=== PATIENT | female | born 1985 | race Caucasian/White ===

== ENCOUNTER 2020-04-22 12:24 | Outpatient (CLI) | payer OTHER, SELFPAY ==
[2020-04-22 13:45] LABS: SARS-CoV-2 Ag Positive (Negative)
== END 2020-04-22 12:25 | disposition home or self-care (01) ==
LOC: CHSLAB 12:29
PROVIDERS: PCP Nurse Practitioner Family; Visit Provider Nurse Practitioner Family
DX: U07.1 COVID-19 (principal)
CPT/HCPCS: 87426

== ENCOUNTER 2022-03-16 15:56 | Emergency (ER) | payer OTHER, SELFPAY ==
[2022-03-16 16:13] VITALS: BP 140/86; PULSE 117; RESP 18; TEMP 36.7; O2SAT 99
--- NOTE | 2022-03-16 16:57 | ED.URI ---
HPI - URI/Sore Throat General Chief Complaint: Upper Respiratory Infection Stated Complaint: fever,sob,cough Time Seen by Provider: 03/16/22 16:46 Source: patient Mode of arrival: ambulatory Limitations: no limitations History of Present Illness HPI Narrative: Patient presents today complaining of body aches, cough, sinus pressure, fever up to 99.7, nasal congestion. Symptoms began today. She has been taking Tylenol for her symptoms today with some relief. She was exposed to influenza by her nieces and nephews 3-4 days ago. They tested positive for influenza a yesterday. Patient is 28 weeks . Related Data Home Medications Medication Instructions Recorded Confirmed Cataplex G 03/16/22 doxylamine succinate 25 mg tablet 25 mg PO HS 03/16/22 03/16/22 (Unisom (doxylamine)) duloxetine 20 mg capsule,delayed 20 mg PO DAILY 03/16/22 03/16/22 release loratadine 10 mg tablet (Claritin) 10 mg PO DAILY 03/16/22 03/16/22 multivit with minerals-iron 18 1 tablet PO DAILY 03/16/22 03/16/22 mg-folic ac 400 mcg-vit K 25 mcg tablet (Adults Multivitamin) Allergies Allergy/AdvReac Type Severity Reaction Status Date / Time doxycycline Allergy Swelling Verified 03/16/22 16:21 of Lip/Tongue/Throat methylprednisolone Allergy Anaphylaxis Verified 03/16/22 16:21 Penicillins Allergy Anaphylaxis Verified 03/16/22 16:21 Review of Systems Review of Systems: CONSTITUTIONAL: Denies chills, or sweats.+ fever, body aches EYES: Denies visual changes, redness, or discharge. ENT: Denies rhinorrhea, sore throat, or otalgia.+ congestion, sinus pressure CARDIOVASCULAR: Denies chest pain, palpitations, or edema. RESPIRATORY: Denies dyspnea.+ cough GASTROINTESTINAL: Denies abdominal pain, nausea, vomiting, or diarrhea. GENITOURINARY: Denies dysuria or hematuria. SKIN: Denies rash, itching, or wounds. MUSCULOSKELETAL: Denies back pain, joint pain, or myalgia. NEUROLOGIC: Denies headache, numbness, tingling, or weakness. PSYCH: Denies depression or anxiety. PMFSH Comments At time of signature, I have reviewed and agree with nursing past medical, surgical, social and family history unless otherwise noted. Please see nursing chart for further information. There is no relevant family history pertinent to the presenting complaint Exam Narrative: GENERAL: Well-appearing, well-nourished, and in no acute distress. HEAD: Normocephalic, atraumatic. EYES: EOMI. No redness or drainage. Conjunctivae normal. ENT: Mucous membranes pink and moist. Nares clear. No rhinorrhea. TMs normal bilaterally with mild bibasilar effusions. Throat normal. Uvula midline. NECK: Normal AROM. Supple. No lymphadenopathy. CHEST: No respiratory distress. Clear to auscultation. HEART: Regular rhythm.+ tachycardic. No murmur appreciated. Normal peripheral pulses. ABDOMEN: gravid EXTREMITIES: Normal range of motion. No edema. SKIN: Warm, dry, no rash. Capillary refill normal. Normal skin turgor. NEURO: No focal deficits. Alert and oriented x3. Gait steady. PSYCH: Normal affect. No signs of depression or anxiety. Course Course Level of Care: Express Care Visit Vital Signs Vital signs: Vital Signs Temperature 98.1 F 03/16/22 16:13 Pulse Rate 117 H 03/16/22 16:13 Respiratory Rate 18 03/16/22 16:13 Blood Pressure 140/86 03/16/22 16:13 Pulse Oximetry 99 03/16/22 16:13 Oxygen Delivery Room Air 03/16/22 16:13 Temperature 98.1 F 03/16/22 16:13 Pulse Rate 117 H 03/16/22 16:13 Respiratory Rate 18 03/16/22 16:13 Blood Pressure 140/86 03/16/22 16:13 Pulse Oximetry 99 03/16/22 16:13 Oxygen Delivery Room Air 03/16/22 16:13 Reviewed. Pt has been instructed to follow up with her PCP regarding her elevated blood pressure today. MDM - URI/Sore Throat Differential Diagnosis Differential diagnosis: Likely upper respiratory infection, otitis media, sinusitis, viral infection and influenza Lab Data Attest
== END 2022-03-16 17:09 | disposition home or self-care (01) ==
PROVIDERS: Emergency Provider Nurse Practitioner; PCP Obstetrics & Gynecology
DX: J11.1 Influenza due to unidentified influenza virus with other respiratory manifestations (principal)
CPT/HCPCS: 87804; 99213; G0463

== ENCOUNTER 2022-04-09 08:21 | Outpatient (CLI) | payer OTHER, SELFPAY ==
[2022-04-09] VITALS (19 sets, daily range): BP systolic 139–157; BP diastolic 87–106; PULSE 102
[2022-04-09 09:08] LABS: Basophils Percent Auto 0.2 % (0.2-1.2); Eosinophils Percent Auto 0.3 % (0-4.4); Hematocrit 31.8 % (37.0-47.0); Hemoglobin 10.5 g/dL (12.0-15.0); Immature Granulocyte Absolute 0.05 K/mm3 (0.00-0.031); Immature Granulocyte Percent A 0.5 % (0-0.5); Lymphocytes Absolute Auto 1.36 K/mm3 (0.9-3.2); Lymphocytes Percent Auto 12.8 % (18.3-44.2); Mean Corpuscular Hemoglobin 30.1 pg (26-34); Mean Corpuscular Volume 91.1 fl (80-100); Mean Platelet Volume 12.1 fl (7.4-10.4); Monocytes Absolute Auto 0.7 K/mm3 (0.1-0.6); Monocytes Percent Auto 6.5 % (2.6-8.5); Neutrophils Absolute Auto 8.5 K/mm3 (1.3-6.7); Neutrophils Percent Auto 79.7 % (45.5-73.1); Platelet Count Result 154 k/mm3 (150-375); Red Blood Count 3.49 M/mm3 (4.2-5.4); Red Cell Distribution Width 12.3 % (11.5-14.5); White Blood Count 10.6 K/mm3 (4.5-10.0)
[2022-04-09 09:10] LABS: Appearance Urine Slightly Cloudy (Clear); Bilirubin Urine Negative (Negative); Blood Urine Negative (Negative); Color Urine Yellow (Yellow); Glucose Urine UA Negative (Negative); Ketones Urine Negative (Negative); Leukocyte Esterase Ur Negative LEU/UL (NEGATIVE); Nitrate Urine Negative (Negative); Protein Urine 1+ mg/dL (Negative); Specific Grav Ur 1.015 (1.001-1.035); Urobilinogen Urine 0.2 mg/dL (<2.0)
[2022-04-09 09:18] LABS: Bacteria Urine Trace /hpf; RBC Urine 0-2 /hpf (0-2); Squamous Epithelial Cell Urine Occasional /hpf (Few); WBC Urine 0-3 /hpf (0-3)
[2022-04-09 09:21] LABS: Alanine Aminotransferase 42 U/L (6-35); Albumin Level 3.5 g/dL (3.5-5.1); Alkaline Phosphatase 127 U/L (38-126); Anion Gap 12 mmol/L (8-16); Aspartate Amino Transferase 45 U/L (14-36); Bilirubin,Total 0.2 mg/dL (0.2-1.3); Blood Urea Nitrogen 6 mg/dL (7-17); Calcium 8.5 mg/dL (8.4-10.2); Carbon Dioxide 21 mmol/L (22-30); Chloride 103 mmol/L (98-107); Estimated Glomerular Filt Rate > 60; Glucose 120 mg/dL (65-110); Potassium 3.4 mmol/L (3.4-5.0); Sodium 136 mmol/L (137-145); Uric Acid 4.5 mg/dL (2.5-7.5)
[2022-04-09 09:22] LABS: Creatinine Urine 100.3 mg/dL; Total Protein Urine Random 38 mg/dL; Ur Ttl Prot Creatinine Ratio 0.38 mg/mg (0-0.20)
[2022-04-09 09:32] LABS: Add Urine Microscopic? YES
[2022-04-09] MEDS: LABETALOL HCL 100 MG TABLET 200 MG PO (10:32)
--- NOTE | 2022-04-09 11:16 | PM.OBTRLD ---
OB - Triage/Final Diagnosis Visit Information Date of evaluation: 04/09/22 Reason for evaluation: other ( hypertension) Comments/Additional reasons for admission: I have assessed the risk for this patient, Sada Moreno, and determined that she would benefit from observation care. Evaluation Laboratory results: Laboratory Tests 04/09/22 04/09/22 04/09/22 08:59 08:59 08:59 WBC 10.6 H RBC 3.49 L Hgb 10.5 L Hct 31.8 L MCV 91.1 MCH 30.1 MCHC 33.0 RDW 12.3 Plt Count 154 MPV 12.1 H Immature Gran % (Auto) 0.5 Neut % (Auto) 79.7 H Lymph % (Auto) 12.8 L [place] % (Auto) 6.5 Eos % (Auto) 0.3 Baso % (Auto) 0.2 Lymph # (Auto) 1.36 [place] # (Auto) 0.7 H Eos # (Auto) 0.0 Baso # (Auto) 0.0 Abs Immat Gran (auto) 0.05 H Absolute Neuts (auto) 8.5 H Absolute Nucleated RBC 0.0 Nucleated RBC % 0.0 Sodium Potassium Chloride Carbon Dioxide Anion Gap BUN Creatinine Estim Creat Clear Calc Estimated GFR Glucose Uric Acid Calcium Total Bilirubin AST ALT Alkaline Phosphatase Total Protein Albumin Urine Color Yellow Urine Appearance Slightly cloudy Urine pH 7.0 Ur Specific [place] 1.015 Urine Protein 1+ H Urine Glucose (UA) Negative Urine Ketones Negative Ur Blood (Man) Negative Urine Nitrate Negative Urine Bilirubin Negative Urine Urobilinogen 0.2 Ur Leukocyte Esterase Negative Urine RBC 0-2 Urine WBC 0-3 Ur Squamous Epith Cells Occasional Urine Bacteria Trace Hyaline Casts 1-2 U Random Total Protein 38 Urine Creatinine 100.3 Protein/Creat Ratio 2 0.38 H 04/09/22 08:59 WBC RBC Hgb Hct MCV MCH MCHC RDW Plt Count MPV Immature Gran % (Auto) Neut % (Auto) Lymph % (Auto) [place] % (Auto) Eos % (Auto) Baso % (Auto) Lymph # (Auto) [place] # (Auto) Eos # (Auto) Baso # (Auto) Abs Immat Gran (auto) Absolute Neuts (auto) Absolute Nucleated RBC Nucleated RBC % Sodium 136 L Potassium 3.4 Chloride 103 Carbon Dioxide 21 L Anion Gap 12 BUN 6 L Creatinine 0.70 Estim Creat Clear Calc Not Reportable Estimated GFR > 60 Glucose 120 H Uric Acid 4.5 Calcium 8.5 Total Bilirubin 0.2 AST 45 H ALT 42 H Alkaline Phosphatase 127 H Total Protein 7.0 Albumin 3.5 Urine Color Urine Appearance Urine pH Ur Specific [place] Urine Protein Urine Glucose (UA) Urine Ketones Ur Blood (Man) Urine Nitrate Urine Bilirubin Urine Urobilinogen Ur Leukocyte Esterase Urine RBC Urine WBC Ur Squamous Epith Cells Urine Bacteria Hyaline Casts U Random Total Protein Urine Creatinine Protein/Creat Ratio 2 Vital signs: Vital Signs - 24 hr 04/09/22 09:45 04/09/22 10:32 04/09/22 08:49 Pulse Rate 102 H Blood Pressure 157/106 H Blood Pressure [Left Arm] 157/106 H 04/09/22 09:00 04/09/22 09:15 04/09/22 09:30 Pulse Rate Blood Pressure 139/101 H 148/101 H 146/100 H Blood Pressure [Left Arm] 04/09/22 09:45 04/09/22 10:00 04/09/22 10:15 Pulse Rate Blood Pressure 148/97 H 143/97 H 146/98 H Blood Pressure [Left Arm] 04/09/22 10:30 04/09/22 10:45 Pulse Rate Blood Pressure 145/94 H 141/99 H Blood Pressure [Left Arm]
== END 2022-04-09 13:10 | disposition home or self-care (01) ==
LOC: ANHOBOP 08:26 → ANHOBPP 08:28
PROVIDERS: Visit Provider Obstetrics & Gynecology
DX: O13.9 Gestational [pregnancy-induced] hypertension without significant proteinuria, unspecified trimester (principal); Z3A.00 Weeks of gestation of pregnancy not specified
CPT/HCPCS: 36415; 59025; 80053; 81001; 82570; 84156; 84550; 85025; 87086; 99199; A9270

== ENCOUNTER 2022-05-04 16:10 | Inpatient (IN) | payer OTHER, SELFPAY ==
[2022-05-04] VITALS (62 sets, daily range): BP systolic 138–179; BP diastolic 82–115; PULSE 87–120; RESP 16–17; TEMP 35.9–36.4; O2SAT 92–99; BMI 40.8
--- NOTE | ~2022-05-04 | US_ITS ---
EXAMINATION: US OB limited DATE: 05/04/2022 17:42 INDICATION: Determine presentation. TECHNIQUE: Real-time ultrasound of the pelvis was performed. COMPARISON: None. FINDINGS: There is a single living fetus in vertex presentation, longitudinal lie. The placenta is fundal and anterior. heart rate is 154 beats per minute (bpm). The amniotic fluid index is subjectively no rmal. Normal movement noted during examination. IMPRESSION: 1. Single living fetus in vertex presentation. 2. Normal appearing fundal/anterior placenta. Reviewed, dictated and finalized at location K. LATION NOZZLEMAN
[2022-05-04 15:07] LABS: Alanine Aminotransferase 363 U/L (6-35); Albumin Level 3.6 g/dL (3.5-5.1); Alkaline Phosphatase 177 U/L (38-126); Anion Gap 5 mmol/L (8-16); Aspartate Amino Transferase 334 U/L (14-36); Bilirubin,Total 0.8 mg/dL (0.2-1.3); Blood Urea Nitrogen 8 mg/dL (7-17); Calcium 8.7 mg/dL (8.4-10.2); Carbon Dioxide 24 mmol/L (22-30); Chloride 102 mmol/L (98-107); Estimated Glomerular Filt Rate > 60; Glucose 97 mg/dL (65-110); Potassium 4.1 mmol/L (3.4-5.0); Sodium 131 mmol/L (137-145); Uric Acid 6.5 mg/dL (2.5-7.5)
[2022-05-04 15:11] LABS: Basophils Absolute Auto 0.1 K/mm3 (0.0-0.1); Basophils Percent Auto 0.4 % (0.2-1.2); Creatinine Urine 42.8 mg/dL; Eosinophils Absolute Auto 0.2 K/mm3 (0-0.3); Eosinophils Percent Auto 1.6 % (0-4.4); Hematocrit 30.4 % (37.0-47.0); Hemoglobin 10.1 g/dL (12.0-15.0); Immature Granulocyte Absolute 0.15 K/mm3 (0.00-0.031); Immature Granulocyte Percent A 1.1 % (0-0.5); Lymphocytes Absolute Auto 1.72 K/mm3 (0.9-3.2); Lymphocytes Percent Auto 12.3 % (18.3-44.2); Mean Corpuscular HGB Conc 33.2 g/dl (32-36); Mean Corpuscular Hemoglobin 30.1 pg (26-34); Mean Corpuscular Volume 90.5 fl (80-100); Mean Platelet Volume 11.1 fl (7.4-10.4); Monocytes Absolute Auto 0.8 K/mm3 (0.1-0.6); Monocytes Percent Auto 5.7 % (2.6-8.5); Neutrophils Percent Auto 78.9 % (45.5-73.1); Nucleated Red Blood Cells Perc 0.2 % (0.0-0.2); Platelet Count Result 43 k/mm3 (150-375); Red Blood Count 3.36 M/mm3 (4.2-5.4); Red Cell Distribution Width 13.3 % (11.5-14.5)
[2022-05-04 15:53] LABS: Total Protein Urine Random 356 mg/dL; Ur Ttl Prot Creatinine Ratio 8.32 mg/mg (0-0.20)
[2022-05-04 15:54] LABS: Platelet Estimate Decreased (Adequate); Schistocytes None Seen (NORMAL)
--- NOTE | 2022-05-04 16:19 | PM.IMHP ---
H&P: HPI History of Present Illness Date/Time: 05/04/22 16:19 Chief Complaint: 35 and half weeks with elevated blood pressures Narrative: this is a 37-year-old 1 para 0 whose last menstrual period was 08/29/2021, EDC is 06/05/2022, making her 35 and 1 and half weeks confirmed by early visit who presents with elevated blood pressures. She had elevated blood pressures with 2+ protein in the urine in the office. Labs thus far have shown low platelets mildly elevated liver function tests and elevated blood pressure with proteinuria consistent with -induced hypertension/ HELLP syndrome [facility] Family History Family History Father Hypertension Grandparent Hypertension Grandparent Diabetes mellitus Hypertension Alzheimer disease Grandparent Emphysema lung Meds Home Medications and Allergies Home Medications Medication Instructions Recorded Confirmed Type Cataplex G 03/16/22 History doxylamine succinate 25 mg tablet 25 mg PO HS 03/16/22 03/16/22 History (Unisom (doxylamine)) duloxetine 20 mg capsule,delayed 20 mg PO DAILY 03/16/22 03/16/22 History release loratadine 10 mg tablet (Claritin) 10 mg PO DAILY 03/16/22 03/16/22 History multivit with minerals-iron 18 1 tablet PO DAILY 03/16/22 03/16/22 History mg-folic ac 400 mcg-vit K 25 mcg tablet (Adults Multivitamin) oseltamivir 75 mg capsule (Tamiflu) 75 mg PO Q12H 5 days #10 caps 03/16/22 Rx labetalol 200 mg tablet 200 mg PO Q12H 60 days #120 tabs 04/09/22 Rx Allergies Allergy/AdvReac Type Severity Reaction Status Date / Time doxycycline Allergy Swelling Verified 03/16/22 16:21 of Lip/Tongue/Throat latex Allergy Hives Verified 05/04/22 16:20 methylprednisolone Allergy Anaphylaxis Verified 03/16/22 16:21 nickel Allergy Hives Verified 05/04/22 16:20 Penicillins Allergy Anaphylaxis Verified 03/16/22 16:21 pumpkin Allergy Swelling Verified 05/04/22 16:20 of Lip/Tongue/Throat shellfish derived Allergy Anaphylaxis Verified 05/04/22 16:20 Vital Signs Vital Signs - 24 hr 05/04/22 14:31 05/04/22 14:46 05/04/22 15:01 Pulse Rate 109 H 114 H 108 H Blood Pressure 151/95 H 179/111 H 158/104 H 05/04/22 15:16 05/04/22 15:31 05/04/22 16:01 Pulse Rate 102 H 109 H 101 H Blood Pressure 144/98 H 139/96 H 154/101 H 05/04/22 16:16 Pulse Rate 120 H Blood Pressure 175/115 H Exam Const: General: cooperative, healthy appearing and comfortable Nutritional Appearance: average body habitus Orientation/consciousness: oriented to person, oriented to place and oriented to time HENMT: Head: normal to inspection Resp: Effort & Inspection: normal respiratory effort Cardio: Rate: regular rate Rhythm: regular rhythm Heart sounds: S1 normal heart sound present and S2 normal heart sound present GI: Inspection: normal to inspection and other ( gravid soft uterus) Auscultation: normal bowel sounds : External Female Exam: normal external appearance Speculum Exam - Vagina: normal appearance of the vagina Speculum Exam - Cervix: normal appearance of the cervix H&P: Results Labs Labs: Short CBC 05/04/22 Range/Units 14:40 WBC 14.0 H (4.5-10.0) K/mm3 Hgb 10.1 L (12.0-15.0) g/dL Hct 30.4 L (37.0-47.0) % Plt Count 43 L D (150-375) k/mm3 BMP 05/04/22 14:40 Sodium 131 L Potassium 4.1 Chloride 102 Carbon Dioxide 24 BUN 8 Creatinine 0.70 Glucose 97 Calcium 8.7 Liver Function 05/04/22 Range/Units 14:40 Total Bilirubin 0.8 (0.2-1.3) mg/dL AST 334 H (14-36) U/L ALT 363 H (6-35) U/L Alkaline Phosphatase 177 H (38-126) U/L Albumin 3.6 (3.5-5.1) g/dL Assessment and Plan Assessment and plan (1) HELLP syndrome: Code(s): O14.20 - HELLP syndrome (HELLP), unspecified trimester Status: Acute Plan will administer Celestone but be careful as the patient has a
[2022-05-04 16:30] LABS: Add Urine Microscopic? YES; Appearance Urine Clear (Clear); Bilirubin Urine Negative (Negative); Blood Urine 1+ (Negative); Color Urine Light Yellow (Yellow); Glucose Urine UA Negative (Negative); Ketones Urine Negative (Negative); Leukocyte Esterase Ur Negative LEU/UL (NEGATIVE); Nitrate Urine Negative (Negative); Protein Urine 2+ mg/dL (Negative); Urobilinogen Urine 0.2 mg/dL (<2.0)
[2022-05-04 16:41] LABS: Bacteria Urine Trace /hpf; RBC Urine 0-2 /hpf (0-2); Squamous Epithelial Cell Urine Rare /hpf (Few); WBC Urine 0-3 /hpf (0-3)
--- NOTE | 2022-05-04 18:24 | PC.NURSE ---
4237--Dr. Reuben Andino at bedside to discuss plan of care.
--- NOTE | 2022-05-04 18:26 | PC.NURSE ---
1528--Dr. Reuben Andino updated on pt labs and BP's.
--- NOTE | 2022-05-04 18:38 | LDADM ---
This patient, Sada Moreno, was admitted to Labor/Delivery/Recovery 106 on 05/04/22 at 16:10. Plans for labor, pain management and were discussed with patient. Patient/family oriented to hospital policies and general routines including ID bracelet, bed and alarms, visiting hours, pain management, procedures, bathroom and other care routines, personal items, smoking policy, room service/diet and guest tray routines, infant security routines, and visiting hours. Patient/Family are encouraged to report perceived risks to care and to ask questions if they do not understand what they are told or what they should do. See OBIX for further documentation.
--- NOTE | 2022-05-04 18:45 | PC.NURSE ---
1800--vertex presentation confirmed; transferred to 106.
[2022-05-04] MEDS: diphenhydrAMINE HCl INJ 50 MG/ML VIAL IV PUSH (18:57)
[2022-05-04] MEDS: BETAMETHASONE SOD PHOS/ACETATE 30 MG/5 ML VIAL 12 MG IM (19:00)
[2022-05-04] MEDS: DINOPROSTONE 10 MG VAG INSERT VAGINAL (19:21)
[2022-05-04] MEDS: LACTATED RINGERS 1,000 ML 125 ML IV CONT (19:22)
[2022-05-04] MEDS: CLINDAMYCIN 900 MG/D5W 50 ML 900 MG/50 ML PIGGYBACK 50 MG IVPB (19:22)
[2022-05-04] MEDS: LABETALOL HCL 100 MG TABLET 200 MG PO (20:23)
[2022-05-04] MEDS: SODIUM CHLORIDE 0.9% IV 250 ML 30 ML IV CONT (22:31)
[2022-05-05] VITALS (170 sets, daily range): BP systolic 119–173; BP diastolic 64–112; PULSE 60–109; RESP 15–19; TEMP 36–36.7; O2SAT 77–100
[2022-05-05] MEDS: ZOLPIDEM TARTRATE (*CRX) 5 MG TABLET PO (01:12)
[2022-05-05] MEDS: TERBUTALINE SULFATE 1 MG/ML VIAL 0.25 MG SUB-Q (04:28)
[2022-05-05] MEDS: LABETALOL HCL 100 MG TABLET 200 MG PO (05:01)
[2022-05-05 05:29] LABS: Mean Platelet Volume 10.8 fl (7.4-10.4)
--- NOTE | 2022-05-05 05:53 | PM.OBPNLAB ---
Pain Control Date/time seen: 05/05/22 05:53 Pain control: tolerating well Pelvic Exam Dilation (cm): 0 Amniotic membrane status: Intact Contractions Monitor mode: External Contraction pattern: Irregular Contraction intensity: Moderate Status status: Category ll Assessment and Plan Comments: teddy 111k
[2022-05-05 06:39] LABS: Basophils Percent Auto 0.2 % (0.2-1.2); Eosinophils Percent Auto 0.3 % (0-4.4); Hematocrit 28.1 % (37.0-47.0); Hemoglobin 9.3 g/dL (12.0-15.0); Immature Granulocyte Absolute 0.53 K/mm3 (0.00-0.031); Immature Granulocyte Percent A 3.5 % (0-0.5); Lymphocytes Absolute Auto 1.36 K/mm3 (0.9-3.2); Mean Corpuscular HGB Conc 33.1 g/dl (32-36); Mean Corpuscular Hemoglobin 29.9 pg (26-34); Mean Corpuscular Volume 90.4 fl (80-100); Monocytes Absolute Auto 0.4 K/mm3 (0.1-0.6); Monocytes Percent Auto 2.5 % (2.6-8.5); Neutrophils Absolute Auto 12.7 K/mm3 (1.3-6.7); Neutrophils Percent Auto 84.5 % (45.5-73.1); Nucleated Red Blood Cells Absolute Auto 0.1 K/mm3 (0.0-0.012); Nucleated Red Blood Cells Perc 0.7 % (0.0-0.2); Red Blood Count 3.11 M/mm3 (4.2-5.4); Red Cell Distribution Width 13.4 % (11.5-14.5)
[2022-05-05 06:40] LABS: Platelet Count Result 104 k/mm3 (150-375)
[2022-05-05] MEDS: hydrALAZINE HCL 20 MG/ML VIAL 5 MG IV PUSH (07:54)
--- NOTE | 2022-05-05 08:04 | WPDANESEPPF ---
Anes - Initial Pre Proc Eval Date/Time: 05/05/22 08:04 Surgeon: Dawit Andino MD Pre Op Diagnosis: PIH /Labs/NST Patient Data Age: 37 Gender: F Height: 1.55 m Weight: 98 kg Last Vital Signs Temp 36.0 C L 05/05/22 06:27 Pulse 98 05/05/22 08:00 Resp 16 05/05/22 03:00 BP 156/100 H 05/05/22 08:00 Pulse Ox 77 L 05/05/22 08:02 Allergies Allergy/AdvReac Type Severity Reaction Status Date / Time doxycycline Allergy Swelling Verified 03/16/22 16:21 of Lip/Tongue/Throat latex Allergy Hives Verified 05/04/22 16:20 methylprednisolone Allergy Anaphylaxis Verified 03/16/22 16:21 nickel Allergy Hives Verified 05/04/22 16:20 Penicillins Allergy Anaphylaxis Verified 03/16/22 16:21 pumpkin Allergy Swelling Verified 05/04/22 16:20 of Lip/Tongue/Throat shellfish derived Allergy Anaphylaxis Verified 05/04/22 16:20 Home Medications Medication Instructions Recorded Confirmed Type Cataplex G 03/16/22 History doxylamine succinate 25 mg tablet 25 mg PO HS 03/16/22 03/16/22 History (Unisom (doxylamine)) duloxetine 20 mg capsule,delayed 20 mg PO DAILY 03/16/22 03/16/22 History release loratadine 10 mg tablet (Claritin) 10 mg PO DAILY 03/16/22 03/16/22 History multivit with minerals-iron 18 1 tablet PO DAILY 03/16/22 03/16/22 History mg-folic ac 400 mcg-vit K 25 mcg tablet (Adults Multivitamin) oseltamivir 75 mg capsule (Tamiflu) 75 mg PO Q12H 5 days #10 caps 03/16/22 Rx labetalol 200 mg tablet 200 mg PO Q12H 60 days #120 tabs 04/09/22 Rx Laboratory Tests 05/04/22 05/04/22 05/04/22 14:40 14:40 14:40 WBC 14.0 K/mm3 H K/mm3 (4.5-10.0) RBC 3.36 M/mm3 L M/mm3 (4.2-5.4) Hgb 10.1 g/dL L g/dL (12.0-15.0) Hct 30.4 % L % (37.0-47.0) MCV 90.5 fl fl (80-100) MCH 30.1 pg pg (26-34) MCHC 33.2 g/dl g/dl (32-36) RDW 13.3 % % (11.5-14.5) Plt Count 43 k/mm3 L D k/mm3 (150-375) MPV 11.1 fl H fl (7.4-10.4) Immature Gran % (Auto) 1.1 % H % (0-0.5) Neut % (Auto) 78.9 % H % (45.5-73.1) Lymph % (Auto) 12.3 % L % (18.3-44.2) [place] % (Auto) 5.7 % % (2.6-8.5) Eos % (Auto) 1.6 % % (0-4.4) Baso % (Auto) 0.4 % % (0.2-1.2) Lymph # (Auto) 1.72 K/mm3 K/mm3 (0.9-3.2) [place] # (Auto) 0.8 K/mm3 H K/mm3 (0.1-0.6) Eos # (Auto) 0.2 K/mm3 K/mm3 (0-0.3) Baso # (Auto) 0.1 K/mm3 K/mm3 (0.0-0.1) Abs Immat Gran (auto) 0.15 K/mm3 H K/mm3 (0.00-0.031) Absolute Neuts (auto) 11.0 K/mm3 H K/mm3 (1.3-6.7) Absolute Nucleated RBC 0.0 K/mm3 K/mm3 (0.0-0.012) Nucleated RBC % 0.2 % % (0.0-0.2) Platelet Estimate Decreased (Adequate) % Immature Plt Fraction 16.0 % H % (0.9-11.2) Schistocytes None seen (NORMAL) Sodium Potassium Chloride Carbon Dioxide Anion Gap BUN Creatinine Estim Creat Clear Calc Estimated GFR Glucose Uric Acid Calcium Total Bilirubin AST ALT Alkaline Phosphatase Total Protein Albumin Urine Color Light yellow (Yellow) Urine Appearance Clear (Clear) Urine pH 7.0 (5.0-9.0) Ur Specific [place] 1.010 (1.001-1.035) Urine Protein 2+ mg/dL H mg/dL (Negative) Urine Glucose (UA) Negative mg/dL mg/dL (Negative) Urine Ketones Negative mg/dL mg/dL (Negative) Ur Blood (Man) 1+ H (Negative) Urine Nitrate Negative (Negative) Urine Bilirubin Negative (Negative) Urine Urobilinogen 0.2 mg/dL mg/dL (<2.0) Ur Leukocyte Esterase Negative KEMAR/UL
[2022-05-05 08:25] LABS: Immature Platelet Fraction Pct 8.9 % (0.9-11.2); Mean Platelet Volume 10.6 fl (7.4-10.4); Platelet Count Result 111 k/mm3 (150-375)
[2022-05-05] MEDS: LACTATED RINGERS 1,000 ML 125 ML IV CONT ×2 (09:04→10:15)
[2022-05-05] MEDS: CLINDAMYCIN 900 MG/D5W 50 ML 900 MG/50 ML PIGGYBACK 50 MG IVPB (09:30)
--- NOTE | 2022-05-05 09:34 | WPDHPUPDATE1 ---
History and Physical Update Update Date/Time: 05/05/22 09:34 History and Physical has been reviewed, including an updated exam of the patient. There are NO changes in the patient's condition. Risks, benefits, and alternatives have been discussed and questions answered. Patient agrees to proceed with procedure.
--- NOTE | 2022-05-05 10:30 | W.PM.PROC2 ---
Procedure Note - Detailed Date of Procedure 05/05/22 Pre-op Diagnosis PIH /Labs/NST/HELLP syndrome Post-op Diagnosis Same Procedure Performed primary low-transverse section Surgeon Dawit Andino MD Anesthesia General Indications 37-year-old primi if was admitted at 35 and half weeks gestation with low platelets elevated liver functions and high blood pressure. She received 2units of platelets irregular platelet count from 40 up to 110. The baby was not tolerating labor well she did receive a dose of labetalol and then 1 of hydralazine. After obtaining informed consent she was taken to the back Findings of female 4lb 12oz Apgars 6 and 8 at 1 and 5minutes respectively. Description of Procedure Patient was prepped draped in normal sterile fashion placed in the supine position. Under excellent general trach anesthesia weighted edge she was the the abdomen was entered in Pfannenstiel fashion progressive layers fascia. Fascia incised midline and upward outward fashion. Underlying muscles sharply dissected. Parietal peritoneum mm clamped cm segment. This was carried superiorly and inferiorly to the bladder. Bladder blade flap placed bladder flap formed bladder blade returned. Low-transverse incision made the head delivered SHAINA position nuchal cord checked noted be loose x1 remove the large anterior posterior shoulder delivered spontaneously cord clamped to the best of table next cry placenta delivered intact manually the abdomen wrapped in a moist towel. After assuring no membranes or debris remained in the uterus, the uterus closed continuous running locking 0 Vicryl from lateral edge to lateral edge. This was well by 2nd imbricating running locking 0 Vicryl from lateral edge to lateral edge. There were hemosiderin deposits on the posterior surface of the uterus the ovaries and tubes otherwise appeared within normal limits. The insist spec meehan of the uterine incision was once again noted be hemostatic. This was returned the abdomen. The uterine incision was then sprinkled with [place] term in the with excellent hemostasis. Laps removed and accounted for. The fascia closed with continuous running 0 Vicryl lateral edge to midline bilaterally. Irrigation subcutaneous and skin closed with 4 Monocryl and glue. Blood loss estimated 510cc. All sponge, needle, instrument counts were correct. There were no immediate complications Estimated Blood Loss 510 Drains No Packing No Pathology Yes ( placenta) Complications No immediate complications Condition Stable Disposition PACU
[2022-05-05 11:07] LABS: Rapid Plasma Reagin Non-Reactive (NonReactive)
[2022-05-05] MEDS: MAGNESIUM SULF 20GM/WATER500ML 500 ML 50 MG IV CONT ×2 (12:19→22:44)
[2022-05-05] MEDS: MORPHINE SULFATE PCA (*CRX) 30 MG/30 ML SYR IV CONT (12:20)
--- NOTE | 2022-05-05 14:13 | OBPPTRN ---
Patient transferred to post room # 286 via stretcher accompanied by support person and oriented to unit, room, information board, rooming in, admission packet and security measures. PT introductions made and plan of care discussed per post op c section, pain management, bottle feeding, daily care activities and PIH symptoms. PT received such instructions per one to one discussion, mom baby care guide and demonstrations. PT show no barriers to learning and verbalized understanding of such care.
[2022-05-05 14:55] LABS: Hematocrit 25.9 % (37.0-47.0); Hemoglobin 8.6 g/dL (12.0-15.0); Mean Corpuscular HGB Conc 33.2 g/dl (32-36); Mean Corpuscular Hemoglobin 30.7 pg (26-34); Mean Corpuscular Volume 92.5 fl (80-100); Platelet Count Result 109 k/mm3 (150-375); Red Cell Distribution Width 13.6 % (11.5-14.5); White Blood Count 18.4 K/mm3 (4.5-10.0)
[2022-05-05] MEDS: ACETAMINOPHEN 325 MG TABLET 650 MG PO (18:31)
[2022-05-05] MEDS: DOCUSATE SODIUM 100 MG CAPSULE PO (18:32)
[2022-05-05] MEDS: POLYSACCHARIDE IRON COMPLEX 150 MG CAPSULE PO (18:32)
[2022-05-05] MEDS: SIMETHICONE 80 MG TAB.CHEW PO (18:32)
[2022-05-05] MEDS: ONDANSETRON INJ 4 MG/2 ML VIAL IV PUSH (18:52)
[2022-05-06] VITALS (11 sets, daily range): BP systolic 117–148; BP diastolic 71–94; PULSE 90–103; RESP 16–18; TEMP 36.4–36.6; O2SAT 99
[2022-05-06] MEDS: SIMETHICONE 80 MG TAB.CHEW PO ×4 (04:11→16:57)
[2022-05-06 05:40] LABS: Basophils Percent Auto 0.2 % (0.2-1.2); Eosinophils Absolute Auto 0.1 K/mm3 (0-0.3); Eosinophils Percent Auto 0.3 % (0-4.4); Hematocrit 26.9 % (37.0-47.0); Hemoglobin 8.8 g/dL (12.0-15.0); Immature Granulocyte Absolute 0.21 K/mm3 (0.00-0.031); Immature Granulocyte Percent A 1.1 % (0-0.5); Lymphocytes Absolute Auto 1.98 K/mm3 (0.9-3.2); Lymphocytes Percent Auto 10.2 % (18.3-44.2); Mean Corpuscular HGB Conc 32.7 g/dl (32-36); Mean Corpuscular Hemoglobin 30.4 pg (26-34); Mean Corpuscular Volume 93.1 fl (80-100); Mean Platelet Volume 11.6 fl (7.4-10.4); Monocytes Percent Auto 5.1 % (2.6-8.5); Neutrophils Absolute Auto 16.2 K/mm3 (1.3-6.7); Neutrophils Percent Auto 83.1 % (45.5-73.1); Nucleated Red Blood Cells Perc 0.2 % (0.0-0.2); Platelet Count Result 133 k/mm3 (150-375); Red Blood Count 2.89 M/mm3 (4.2-5.4); Red Cell Distribution Width 13.8 % (11.5-14.5); White Blood Count 19.5 K/mm3 (4.5-10.0)
[2022-05-06 05:47] LABS: Alanine Aminotransferase 335 U/L (6-35); Albumin Level 3.2 g/dL (3.5-5.1); Alkaline Phosphatase 148 U/L (38-126); Anion Gap 4 mmol/L (8-16); Aspartate Amino Transferase 282 U/L (14-36); Bilirubin,Total 0.3 mg/dL (0.2-1.3); Blood Urea Nitrogen 8 mg/dL (7-17); Calcium 6.5 mg/dL (8.4-10.2); Carbon Dioxide 27 mmol/L (22-30); Chloride 101 mmol/L (98-107); Estimated CRCL calculation 91 ml/min; Estimated Glomerular Filt Rate > 60; Glucose 109 mg/dL (65-110); Sodium 132 mmol/L (137-145)
--- NOTE | 2022-05-06 07:30 | PC.NURSE ---
PT introductions made and plan of care discussed per post op c section, pain management, bottle feeding, daily care activities and PIH symptoms. PT received such instructions per one to one discussion, mom baby care guide and demonstrations this shift. PT sole recipient of such instructions. PT show no barriers to learning and verbalized understanding of such care.
--- NOTE | 2022-05-06 08:00 | PM.OBPNVD ---
OB - PN: Subj Subjective Date/time seen: 05/06/22 08:00 Patient comments: no complaints and pain well controlled baby status: doing well OB - PN: Obj Data Labs 05/06/22 04:14 05/06/22 04:14 Labs: Laboratory Results - last 24 hr 05/04/22 05/05/22 05/05/22 17:16 08:13 14:48 WBC 18.4 H RBC 2.80 L Hgb 8.6 L Hct 25.9 L MCV 92.5 MCH 30.7 MCHC 33.2 RDW 13.6 Plt Count 111 L 109 L MPV 10.6 H 11.0 H Immature Gran % (Auto) Neut % (Auto) Lymph % (Auto) [place] % (Auto) Eos % (Auto) Baso % (Auto) Lymph # (Auto) [place] # (Auto) Eos # (Auto) Baso # (Auto) Abs Immat Gran (auto) Absolute Neuts (auto) Absolute Nucleated RBC Nucleated RBC % % Immature Plt Fraction 8.9 11.0 Sodium Potassium Chloride Carbon Dioxide Anion Gap BUN Creatinine Estim Creat Clear Calc Estimated GFR Glucose Calcium Total Bilirubin AST ALT Alkaline Phosphatase Total Protein Albumin RPR Non-reactive 05/06/22 05/06/22 04:14 04:14 WBC 19.5 H RBC 2.89 L Hgb 8.8 L Hct 26.9 L MCV 93.1 MCH 30.4 MCHC 32.7 RDW 13.8 Plt Count 133 L MPV 11.6 H Immature Gran % (Auto) 1.1 H Neut % (Auto) 83.1 H Lymph % (Auto) 10.2 L [place] % (Auto) 5.1 Eos % (Auto) 0.3 Baso % (Auto) 0.2 Lymph # (Auto) 1.98 [place] # (Auto) 1.0 H Eos # (Auto) 0.1 Baso # (Auto) 0.0 Abs Immat Gran (auto) 0.21 H Absolute Neuts (auto) 16.2 H Absolute Nucleated RBC 0.0 Nucleated RBC % 0.2 % Immature Plt Fraction 13.0 H Sodium 132 L Potassium 4.0 Chloride 101 Carbon Dioxide 27 Anion Gap 4 L BUN 8 Creatinine 0.80 Estim Creat Clear Calc 91 Estimated GFR > 60 Glucose 109 Calcium 6.5 L Total Bilirubin 0.3 AST 282 H ALT 335 H Alkaline Phosphatase 148 H Total Protein 6.0 L Albumin 3.2 L RPR OB - PN A/P Plan day: 1 Comments: Blood pressure stable on no antihypertensives. Platelets and H&H are good. Postop magnesium sulfate today and increase diet and activity Time Spent With Patient Time: Total time spent is greater than 50% in coordination of care (as documented) at patient's floor/unit and/or counseling patient: Time with patient: 15 - 25 minutes Exam Const: General: cooperative, healthy appearing and comfortable Nutritional Appearance: average body habitus Orientation/consciousness: oriented to person, oriented to place and oriented to time HENMT: Head: normal to inspection Resp: Effort & Inspection: normal respiratory effort Cardio: Rate: regular rate Rhythm: regular rhythm Heart sounds: S1 normal heart sound present and S2 normal heart sound present GI: Inspection: normal to inspection (Fundus firm below the umbilicus) and incision (Wound is clean dry and intact)
[2022-05-06] MEDS: HYDROcodone/acetaminophen (*CRX) 5-325 MG TABLET 1 TAB PO ×3 (09:04→16:57)
[2022-05-06] MEDS: POLYSACCHARIDE IRON COMPLEX 150 MG CAPSULE PO ×2 (09:05→16:57)
[2022-05-06] MEDS: DOCUSATE SODIUM 100 MG CAPSULE PO ×2 (09:05→16:57)
--- NOTE | 2022-05-06 10:27 | WPDANLDPN2 ---
Anes-Prog Note L&D Date/Time: 05/06/22 10:27 Comfortable throughout: section (General Anesthesia) Neuro status: Neuro function grossly intact. Cardiovascular status: normal Respiratory status: normal Airway patency: baseline Mental status: baseline Post-Op hydration status: normal Vital Signs: Last Vital Signs Temp 36.4 C 05/06/22 08:40 Pulse 90 05/06/22 08:40 Resp 18 05/06/22 08:40 BP 124/86 05/06/22 08:40 Pulse Ox 99 05/06/22 08:40 O2 Del Method Room Air 05/06/22 04:00 Pain score (VAS): 2/10 I/O: Intake & Output 05/05/22 05/06/22 05/06/22 23:59 07:59 15:59 Intake Total 1600 806 Output Total 4000 1800 Balance -2400 -994 Post-procedural complaints: none Patient feedback: Patient satisfied with anesthetic care.
[2022-05-06] MEDS: IBUPROFEN 600 MG TABLET PO ×2 (12:16→20:10)
[2022-05-07] VITALS (10 sets, daily range): BP systolic 137–160; BP diastolic 88–106; PULSE 97–104; RESP 18; TEMP 36.8–37.2; O2SAT 98–100
[2022-05-07] MEDS: IBUPROFEN 600 MG TABLET PO ×4 (01:12→23:23)
[2022-05-07] MEDS: SIMETHICONE 80 MG TAB.CHEW PO ×4 (01:12→23:23)
--- NOTE | 2022-05-07 06:25 | PM.OBPNVD ---
OB - PN: Subj Subjective Date/time seen: 05/07/22 06:25 Patient comments: no complaints and pain well controlled baby status: doing well and nursing well OB - PN: Obj Data Labs 05/06/22 04:14 05/06/22 04:14 OB - PN A/P Plan day: 2 Plan: routine care Comments: blood pressures continued to remain within normal limits Time Spent With Patient Time: Total time spent is greater than 50% in coordination of care (as documented) at patient's floor/unit and/or counseling patient: Time with patient: less than 15 minutes Exam Const: General: cooperative, healthy appearing and comfortable Orientation/consciousness: oriented to person, oriented to place and oriented to time HENMT: Head: normal to inspection Resp: Effort & Inspection: normal respiratory effort GI: Inspection: normal to inspection and incision ( wound is clean dry and intact)
[2022-05-07] MEDS: DOCUSATE SODIUM 100 MG CAPSULE PO ×2 (07:47→16:52)
[2022-05-07] MEDS: POLYSACCHARIDE IRON COMPLEX 150 MG CAPSULE PO ×2 (07:48→16:52)
[2022-05-07] MEDS: LABETALOL HCL 100 MG TABLET 200 MG PO ×2 (09:32→17:53)
[2022-05-08] VITALS (8 sets, daily range): BP systolic 143–155; BP diastolic 92–101; PULSE 92–98; RESP 18; TEMP 36.4–36.9; O2SAT 99
[2022-05-08] MEDS: DOCUSATE SODIUM 100 MG CAPSULE PO ×2 (07:17→17:12)
[2022-05-08] MEDS: IBUPROFEN 600 MG TABLET PO ×3 (07:17→20:02)
--- NOTE | 2022-05-08 08:39 | PM.OBPNVD ---
OB - PN: Subj Subjective Date/time seen: 05/08/22 08:39 Patient comments: no complaints and pain well controlled baby status: doing well OB - PN: Obj Data Labs 05/06/22 04:14 05/06/22 04:14 OB - PN A/P Plan day: 3 Plan: routine care Comments: Begin labetalol 200 t.i.d. with good control Time Spent With Patient Time: Total time spent is greater than 50% in coordination of care (as documented) at patient's floor/unit and/or counseling patient: Exam Const: General: cooperative, healthy appearing and comfortable Nutritional Appearance: average body habitus Orientation/consciousness: oriented to person, oriented to place and oriented to time HENMT: Head: normal to inspection Resp: Effort & Inspection: normal respiratory effort GI: Inspection: normal to inspection and incision (cdi)
[2022-05-08] MEDS: LABETALOL HCL 100 MG TABLET 200 MG PO ×3 (08:56→17:12)
[2022-05-08] MEDS: POLYSACCHARIDE IRON COMPLEX 150 MG CAPSULE PO (17:12)
[2022-05-09] VITALS: BP 149/89; PULSE 100
[2022-05-09 05:00] VITALS: BP 152/94; PULSE 97
--- NOTE | 2022-05-09 07:36 | PM.OBPNVD ---
OB - PN: Subj Subjective Date/time seen: 05/09/22 07:36 Patient comments: no complaints and pain well controlled baby status: doing well OB - PN: Obj Data Labs 05/06/22 04:14 05/06/22 04:14 OB - PN A/P Plan day: 4 Plan: routine care and follow up 6 weeks (1 week) Time Spent With Patient Time: Total time spent is greater than 50% in coordination of care (as documented) at patient's floor/unit and/or counseling patient: Time with patient: less than 15 minutes Exam Const: General: cooperative, healthy appearing and comfortable Nutritional Appearance: average body habitus Orientation/consciousness: oriented to person, oriented to place and oriented to time Resp: Effort & Inspection: normal respiratory effort Cardio: Rate: regular rate Rhythm: regular rhythm Heart sounds: S1 normal heart sound present and S2 normal heart sound present GI: Inspection: normal to inspection
--- NOTE | 2022-05-09 07:37 | PM.DS ---
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 She is positive for group B strep. She underwent spontaneous vaginal delivery and her hospital course after delivery was relatively unremarkable. She did remain on labetalol 200mg 3 times a day with good control of her blood pressure. Her enzymes and platelet counts returned to normal. She her blood pressure was well controlled Hospital Course: see above Time Spent with Patient Time attestation: Total time spent providing and/or coordinating discharge services: Exam Const: General: cooperative, healthy appearing and comfortable Nutritional Appearance: average body habitus Orientation/consciousness: oriented to person, oriented to place and oriented to time HENMT: Head: normal to inspection GI: Inspection: normal to inspection DS: Data Data Completed and Pending Completed studies during hospitalization: Pending at discharge 05/05/22 09:56 Surgical [PTH] Routine Discharge Plan Discharge Attending physician on discharge: Dawit Delgado Discharging Clinician: Dawit Delgado Patient Disposition: Home, Self-Care Activity: may shower, no straining and pelvic rest Diet: heart healthy Patient Instructions: Antibiotic Form Stand Alone Forms: General Discharge Information Follow-up/Referrals: Dawit Delgado MD [Physician] - Discharge Medications: No Action Unisom (doxylamine) 25 mg Tablet 25 mg PO HS loratadine [Claritin] 10 mg Tablet 10 mg PO DAILY duloxetine 20 mg capsule,delayed release(DR/EC) 20 mg PO DAILY Adults Multivitamin 18 mg iron-400 mcg-25 mcg Tablet 1 tablet PO DAILY Cataplex G oseltamivir [Tamiflu] 75 mg capsule 75 mg PO Q12H 5 Days Qty: 10 0RF labetalol 200 mg Tablet 200 mg PO Q12H 60 Days Qty: 120 0RF Date of admission: 05/04/22 16:10 Primary Care Provider: UNKNOWN,DOCTOR Admitting Provider: Dawit Delgado Attending physician on admission: Dawit Delgado Condition: Stable
[2022-05-09 09:10] VITALS: BP 160/97; PULSE 99; RESP 16; TEMP 36.7; O2SAT 99
[2022-05-09 09:16] VITALS: PULSE 99
[2022-05-09] MEDS: LABETALOL HCL 100 MG TABLET 200 MG PO (09:16)
[2022-05-09] MEDS: POLYSACCHARIDE IRON COMPLEX 150 MG CAPSULE PO (09:16)
[2022-05-09] MEDS: IBUPROFEN 600 MG TABLET PO (09:16)
--- NOTE | 2022-05-09 12:45 | PC.NURSE ---
Per patient she does not want the Tdap or Flu vaccine at this time.
[2022-05-10 12:19] VITALS: BP 158/102; PULSE 97; RESP 20; TEMP 36.6; O2SAT 100
== END 2022-05-09 12:45 | disposition home or self-care (01) | DRG 540 ==
LOC: ANHOBOP 16:42 → ANHLDR 16:42 → ANHOB2 05-05 14:22
PROVIDERS: Admitting Provider Obstetrics & Gynecology; Visit Provider Obstetrics & Gynecology
PROC: 10D00Z1 Extraction of Products of Conception, Low, Open Approach (ICD-10-PCS; CPT 59514; principal; 2022-05-05 09:30)
DX: O14.24 HELLP syndrome, complicating childbirth (principal); O36.8330 Maternal care for abnormalities of the fetal heart rate or rhythm, third trimester, not applicable or unspecified; Z37.0 Single live birth; Z3A.35 35 weeks gestation of pregnancy; O69.81X0 Labor and delivery complicated by cord around neck, without compression, not applicable or unspecified; O99.824 Streptococcus B carrier state complicating childbirth
CPT/HCPCS: 36415; 36430; 76815; 80053; 81001; 82570; 84156; 84550; 85025; 85027; 85049; 85055; 86592; 86850; 86900; 86901; 87086; 88307; A9270; J0131; J0330; J0360; J0702; J1200; J2270; J2405; J2590; J2704; J3010; J3105; J3475; J7050; J7120; P9034